=== PATIENT | male | born 1990 | race Caucasian/White ===

== ENCOUNTER 2024-05-26 22:10 | Emergency (ER) | payer MEDICAID ==
[~2024-05-26] VITALS: Ht 190.5 cm; Wt 88.5 kg
[2024-05-26 22:34] VITALS: BP_SYST 122; PULSE 103; RESP 18; TEMP 98.4; O2SAT 97
[2024-05-27] MEDS ORDERED: IBUP-1969 PO (00:10)
[2024-05-27 00:24] VITALS: BP_SYST 122; PULSE 103; RESP 18; TEMP 98.4; O2SAT 97
[2024-05-27] MEDS: IBUPROFEN 600 MG TABLET PO ONE (00:38)
== END 2024-05-27 00:24 | disposition home or self-care (01) ==
LOC: SED 22:10
DX: S16.1XXA Strain of muscle, fascia and tendon at neck level, initial encounter (principal); S39.012A Strain of muscle, fascia and tendon of lower back, initial encounter; S49.82XA Other specified injuries of left shoulder and upper arm, initial encounter; X58.XXXA Exposure to other specified factors, initial encounter; Y93.89 Activity, other specified; Y92.89 Other specified places as the place of occurrence of the external cause; Y99.8 Other external cause status
CPT/HCPCS: 72040; 72100; 73000; 99284